=== PATIENT | male | born 1995 | race Caucasian/White ===

== ENCOUNTER 2018-08-13 02:36 | Emergency (ER) | payer OTHER ==
[2018-08-13] MEDS ORDERED: Lidocaine 1% (PF) 30 ML VIAL ONE (02:54)
[2018-08-13] MEDS ORDERED: Lorazepam 2 MG/ML VIAL ONE ×2 (03:00→03:14)
[2018-08-13] MEDS ORDERED: traMADol HCl 50 MG TAB ONE (04:35)
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
== END 2018-08-13 04:44 | disposition home or self-care (01) ==
LOC: ERS 02:36
DX: S91.341A Puncture wound with foreign body, right foot, initial encounter (principal); F17.210 Nicotine dependence, cigarettes, uncomplicated; F41.9 Anxiety disorder, unspecified; W34.00XA Accidental discharge from unspecified firearms or gun, initial encounter
CPT/HCPCS: 28190; 96365; G0390; J2001; J2060